=== PATIENT | female | born 1945 | race Caucasian/White ===

== ENCOUNTER 2017-11-26 09:18 | Day surgery (SDC) | payer MEDICARE, BC ==
[2007-07-09 17:45] VITALS: BP 134/73
[~2017-11-26] VITALS: Ht 160 cm; Wt 73.3 kg
[~2017-11-26 09:18] MED LIST: ACCUPRIL 1010 MG/TAB PO; ACCUPRIL10 M1 PO; ACCUPRIL10 MG PO; ALDACTONE 25MG25 M1 PO; ALEVE 220MG220 MG PO; COZAAR 25MG25 MG/TAB PO; DALIRESP500 MCG PO; DESYREL 50MG50 MG PO; DETROL LA4 PO; FASTIN30 MG PO; FISH OIL500 MG PO; FLEET MINE1 BOT/133; IMIPRAMINE PO; LASIX 20MG TABL20 MG PO; LASIX PO; LEVAQUIN 750MG750 M1 PO; MINERAL OIL 1 ML1 ML PO; MYCOSTATIN100000 U/2 TP; NEURONTIN300 MG/CAP PO; NEXIUM 20MG20 MG PO; NYSTATIN POWDER15 GM TOP; OXAZEPAM; OXAZEPAM10 MG PO; PRILOSEC 20MG20 MG PO; PROBIOTIC-MAJOR PO; REFRESH 1 ML1 ML OP; REFRESH PLUS 00.4 M1 OP; REFRESH PM1 OI1 OP; SERAX 10MG10 MG/CAP PO; SERAX30 MG PO; SINGULAIR 110 MG/TAB PO; SYNTHROID0.125 MG/T PO; TOFRANIL50 MG PO; TRAZODO50 MG PO; VITAMIN D1000 IU PO; ZITHROMAX Z PA250 MG PO; [UNRECOGNIZED DRUG - CODE] PO; [UNRECOGNIZED DRUG - OTHER] OU
[2017-11-26 10:25] VITALS: BP 115/66; PULSE 89; TEMP 98
[2017-11-26 16:16] VITALS: BP 130/56; PULSE 96; TEMP 97.1
[2017-11-26 16:30] VITALS: BP 124/57; PULSE 92
[2017-11-26 16:45] VITALS: BP 137/60; PULSE 92
[2017-11-26] MEDS ORDERED: ROXICODONE 55 MG/TAB PO (16:47)
[2017-11-26] MEDS ORDERED: TYLENOL 500MG500 MG PO (16:48)
[2017-11-26 17:00] VITALS: BP 107/86; PULSE 81
[2017-11-26 17:16] VITALS: BP 130/64; PULSE 93
== END 2017-11-26 18:35 | disposition home or self-care (01) ==
LOC: SDCO 09:18
DX: K43.2 Incisional hernia without obstruction or gangrene (principal); Z87.891 Personal history of nicotine dependence; Z88.0 Allergy status to penicillin; Z88.6 Allergy status to analgesic agent; E03.9 Hypothyroidism, unspecified; I10 Essential (primary) hypertension; Z88.1 Allergy status to other antibiotic agents; K21.9 Gastro-esophageal reflux disease without esophagitis; M79.7 Fibromyalgia; F32.9 Major depressive disorder, single episode, unspecified; R53.82 Chronic fatigue, unspecified
CPT/HCPCS: C1713; C1781; J1100; J1170; J1885; J1956; J2370; J2405; J2704; J2710; J3010; J7120